=== PATIENT | female | born 1970 | race Hispanic/Latino ===

== ENCOUNTER 2024-08-31 03:52 | Emergency (ER) | payer BC, MEDICAID ==
[~2024-08-31] VITALS: Ht 157.5 cm; Wt 78.9 kg
[2024-08-31 04:30] LABS: HEMATOCRIT 39.9 % (36-48); MEAN CORPUSCULAR HEMOGLOBIN 30.2 pg (27.0-33.0); MEAN CORPUSCULAR HGB CONC 32.8 g/dL (32.0-36.0); MEAN CORPUSCULAR VOLUME 91.9 fL (79-99); RED BLOOD CELL COUNT(AUTO) 4.34 MIL/uL (4.00-5.50); RED CELL DISTRIBUTION WIDTH 12.6 % (11.0-15.5); WHITE BLOOD COUNT (AUTO) 4.5 K/uL (4.8-10.8)
[2024-08-31 04:36] LABS: APPEARANCE,URINE CLOUDY (CLEAR); BILIRUBIN,URINE NEGATIVE (NEGATIVE); COLOR,URINE COLORLESS (YELLOW); GLUCOSE, URINE (UA) 300 mg/dL (NEGATIVE); KETONES,URINE NEGATIVE (NEGATIVE); LEUKOCYTE ESTERASE ,URINE 500 Leu/uL (NEGATIVE); NITRATE,URINE NEGATIVE (NEGATIVE); OCCULT BLOOD,URINE NEGATIVE (NEGATIVE); PH,URINE 5.5 (5.0-8.0); PROTEIN,URINE NEGATIVE (NEGATIVE); UROBILINOGEN,URINE 0.2 mg/dL (0.2-1.0)
[2024-08-31 04:41] LABS: ADD UA MICROSCOPIC YES
[2024-08-31] MEDS: ketOROlac 15MG/ML VIAL (15MG/ML) IV ONE (04:41)
[2024-08-31] MEDS: DiphenhydrAMINE HCL 50 MG/ML VIAL IV ONE (04:41)
[2024-08-31] MEDS: PROCHLORPERAZINE 10MG/2ML INJ IV ONE (04:42)
[2024-08-31] MEDS: GABAPENTIN 300 MG CAPSULE PO SCH (04:42)
[2024-08-31 04:45] LABS: CREATININE 0.7 mg/dL (0.5-1.0); POTASSIUM 3.5 mmol/L (3.5-5.1)
[2024-08-31 04:55] LABS: BACTERIA,URINE RARE /HPF (None Seen); MUCUS,URINE RARE LPF (None Seen); SQUAMOUS EPITHELIAL CELL,UR RARE /HPF (0-2); WBC CLUMP MOD /HPF (0-1); WBC,URINE 26-50 /HPF (0-1); YEAST,URINE BUDDING MOD /HPF (None Seen)
--- NOTE | 2024-08-31 05:39 | ERN ---
General Chief Complaint: Headache Stated Complaint: HEADACHE Time Seen by MD: 04:04 History of Present Illness Initial Comments Mrs Blakely is a 54-year-old female with a history of uncontrolled diabetes who presents today with a chief complaint of a sharp pain in her right superior aspect of her scalp. Patient reports that she has had this pain before and yesterday she was given Toradol. Patient was on uncontrolled diabetes hemoglobin A1c is 11. Patient also has other sensation is changes in her upper extremities Allergies: Coded Allergies: No Known Drug Allergies (Unverified Allergy, Unknown, 08/31/24) Past Medical History Past Medical History: Diabetes-Type II Past Surgical History: None Female( History) LMP: Jul 23, 2016 ROS Dictation Constitutional: Negative for fever,chills, and weight loss Eyes: Negative for injury, pain,redness, and discharge ENT: Negative for injury,pain or swelling Cardiovascular: Negative for chest pain, palpitations, and edema Respiratory: Negative for shortness of breath, cough, and wheezing, Abdomen/GI: Negative for abdominal pain, nausea, vomiting, diarrhea, and constipation Back: Negative for injury and pain : Negative for injury, bleeding and discharge MS/Extremity: Negative for injury and deformity Skin: Scalp pain Neuro: Negative for headache, weakness, numbness, tingling, and seizure Psych: Negative for suicide ideation, homicidal ideation, and hallucinations Physical Exam Physical Exam Dictation General: awake, alert, NAD Head/Face: Normocephalic, atraumatic, pain with palpation over the the right superior aspect of the scalp Eyes: PERRL, EOMI, vision at baseline ENT: oral cavity clear, Neck: Trachea midline, supple, no nuchal rigidity Cardiovascular: RRR, normal S1/S2, No MRGs, no JVD Respiratory: CTAB, no respiratory distress, No rales or wheezes Abdomen: Soft, non-tender, non-distended, normal bowel sounds, no guarding or rebound. MS/Extremity: Pulses equa Neuro: COAx4, GCS 15, Psych: Normal behavior, mood, and affect normal Results Laboratory and Microbiology Lab and Micro Result Laboratory Tests Test 08/31/24 04:09 08/31/24 04:21 Urine Color COLORLESS (YELLOW) Urine Appearance CLOUDY (CLEAR) H Urine pH 5.5 (5.0-8.0) Urine Specific [place] 1.004 (1.001-1.031) Urine Protein NEGATIVE mg/dL (NEGATIVE) Urine Glucose (UA) 300 mg/dL (NEGATIVE) H Urine Ketones NEGATIVE mg/dL (NEGATIVE) Urine Occult Blood NEGATIVE (NEGATIVE) Urine Nitrate NEGATIVE (NEGATIVE) Urine Bilirubin NEGATIVE mg/dL (NEGATIVE) Urine Urobilinogen 0.2 mg/dL (0.2-1.0) Urine Leukocyte Esterase 500 Satnam/uL (NEGATIVE) H Urine RBC 2-5 /HPF (0-1) H Urine WBC 26-50 /HPF (0-1) H Urine WBC Clumps (Auto) MOD /HPF (0-1) Urine Squamous Epithelial Cells RARE /HPF (0-2) Urine Bacteria RARE /HPF (None Seen) Urine Yeast MOD /HPF (None Seen) White Blood Count 4.5 K/uL (4.8-10.8) L Red Blood Count 4.34 MIL/uL (4.00-5.50) Hemoglobin 13.1 g/dL (12.0-16.0) Hematocrit 39.9 % (36-48) Mean Corpuscular Volume 91.9 fL (79-99) Mean Corpuscular Hemoglobin 30.2 pg (27.0-33.0) Mean Corpuscular Hemoglobin Concent 32.8 g/dL (32.0-36.0) Red Cell Distribution Width 12.6 % (11.0-15.5) Platelet Count 221 K/uL (130-400) Mean Platelet Volume 11.2 fL (7.5-10.5) H Nucleated Red Blood Cells 0.0 % (0.0-0.19) Sodium Level 141 mmol/L (136-145) Potassium Level 3.5 mmol/L (3.5-5.1) Chloride Level 105 mmol/L (101-111) Carbon Dioxide Level 29 mmol/L (21-32) Blood Urea Nitrogen 14 mg/dL (7-18) Creatinine 0.7 mg/dL (0.5-1.0) Glomerular Filtration Rate Calc 104 mL/min (>90) Random Glucose 213 mg/dL (70-105) H Total Calcium 9.1 mg/dL (8.5-10.1) MDM Patient was had improvement with the gabapentin. Pain is longer present. Patient will be discharged with some gabapentin MDM: Differential diagnosis: Neuropathic pain Rationale: Tests considered and ordered secondary to shared decision making include: Previous outside records reviewed: Old ER visits. Risk of complication and/or morbidity or mortality of patient management: None Medications-Per medication reconciliation Need for hospitalization: Patient does not meet criteria for hospitalization. Need for emergency major/minor surgery: No There are no social concerns with this patient. Prescription drug management Prescriptions will include symptomatic care Patient's prior external medical records from other ER visits were reviewed by me as indicated. Prior testing and results from previous visits were reviewed. Prior tests were taken into account with medical decision making and resource utilization, independent historian/historians were used to obtain complete medical history. I independently interpreted the test that were performed, results were reviewed by me and considered findings on radiology if ordered. Medical management and examination interpretation discussions were had by me with other qualified healthcare professionals as indicated for the patient's care. ED Course Orders Procedure Category Date Status Time Cbc Without LAB 08/31/24 Complete Differential 04:23 Basic Metabolic Panel LAB 08/31/24 Complete 04:23 Urinalysis Profile LAB 08/31/24 Complete 04:23 Gabapentin 300 Mg Cap PHA 08/31/24 In Process (Neurontin 300 Mg 05:00 Prochlorperazine PHA 08/31/24 Complete 10mg/2ml Inj 05:00 Ketorolac PHA 08/31/24 Complete Tromethamine 15mg/Ml 05:00 Diphenhydramine Hcl PHA 08/31/24 Complete (Benadryl Inj) 05:00 Culture Urine FABIANO 08/31/24 In Process 04:41 0.9%Nacl 1000ml (Ns PHA 08/31/24 In Process 1000ml) 06:00 Current Medications Medications (Trade) Dose Ordered Sig/Heri Route PRN Reason Start Time Stop Time Status Last Admin Dose Admin Diphenhydramine HCl (BENAdryl INJ) 25 mg ONCE ONCE IV 08/31/24 05:00 08/31/24 05:01 DC 08/31/24 04:41 Gabapentin (NEURontin 300 MG CAP) 300 mg ONCE PO 08/31/24 05:00 09/30/24 04:59 08/31/24 04:42 Ketorolac Tromethamine (toRADol) 15 mg ONCE ONCE IV 08/31/24 05:00 08/31/24 05:01 DC 08/31/24 04:41 Prochlorperazine Edisylate (Compazine 10mg/ 2ml Inj) 10 mg ONCE ONCE IV 08/31/24 05:00 08/31/24 05:01 DC 08/31/24 04:42 Sodium Chloride 501 ml @ 167 mls/hr ONCE ONCE IV 08/31/24 06:00 08/31/24 08:59 08/31/24 05:51 Vital Signs Date Time Temp Pulse Resp B/P (MAP) Pulse Ox O2 Delivery O2 Flow Rate FiO2 08/31/24 04:26 98.2 86 18 111/69 99 Room Air* 0 21 08/31/24 03:53 97.5 85 18 145/78 99 0 DX & DISP Disposition: Discharge Departure Impression: Primary Impression: Neuropathic pain Condition: Stable Scripts Gabapentin (Gabapentin) 100 Mg Capsule 100 MG PO TID for 10 Days, #30 CAP Prov: ERNESTO GALLEGO MD 08/31/24 Additional Instructions: Please follow up with your primary care physician in the next 1-7 days for continuance of care. Please take the gabapentin for your neuropathic pain. Please start controlling your diabetes to help improve your neuropathic pain Referrals: SELF,REFERRAL (PCP) ERNESTO GALLEGO MD Aug 31, 2024 05:39
[2024-08-31] MEDS: 0.9%NACL 1000ML 501 ML IV ONE (05:51)
[2024-08-31] MEDS ORDERED: GABA-529 PO (06:58)
[2024-08-31 07:05] VITALS: BP 139/74; PULSE 89; RESP 18; TEMP 98.2; O2SAT 100
== END 2024-08-31 07:11 | disposition home or self-care (01) ==
LOC: EDH 03:52
DX: M79.2 Neuralgia and neuritis, unspecified (principal); E11.9 Type 2 diabetes mellitus without complications
CPT/HCPCS: 99284; 96374; 96375; 80048; 85027; 87086; 81001; 36415; J1200; J0780; J1885

== ENCOUNTER 2024-09-16 19:36 | Emergency (ER) | payer BC ==
[~2024-09-16] VITALS: Ht 157.5 cm; Wt 74.4 kg
[~2024-09-16 19:36] MED LIST: GABA-529 PO
[2024-09-16] MEDS: acetaMINOPHEN 500 MG TABLET PO ONE (20:15)
[2024-09-16 20:55] VITALS: BP 145/80; PULSE 80; RESP 18; TEMP 98.6; O2SAT 98
[2024-09-16] MEDS: ketOROlac 60 MG VIAL (30MG/ML) IM ONE (21:45)
--- NOTE | 2024-09-16 21:52 | ERN ---
ED Note History of Present Illness Stated Complaint: PAIN ON RT SIDE OF FACE, RASH Chief Complaint: Headache Time Seen by MD: 20:51 Time Seen by Midlevel: 20:51 Dictation: The patient is a 54-year-old female with a history of diabetes, hyperlipidemia w ho presents to the emergency department with complaints of burning sensation to right side of face. Patient reports she was diagnosed with a shingles two weeks ago. Completed her dose of anti viral medication and was giving pain medication but she ran out. Patient unsure of what medication they gave her. Denies any visual disturbances, reports that her eye was evaluated and did not have any wounds. Allergies: Coded Allergies: No Known Drug Allergies (Unverified Allergy, Unknown, 08/31/24) Home Meds Active Scripts Gabapentin (Gabapentin) 100 Mg Capsule, 100 MG PO TID for 10 Days, #30 CAP Prov:ERNESTO GALLEGO MD 08/31/24 Past Medical History Past Medical History: Diabetes-Type II, High Cholesterol Surgical History: None RN Note Reviewed/Agreed w/PFSH: Yes Review of System Dictation Constitutional: Negative for fever,chills, and weight loss Eyes: Negative for injury, pain,redness, and discharge ENT: Negative for injury,pain or swelling Cardiovascular: Negative for chest pain, palpitations, and edema Respiratory: Negative for shortness of breath, cough, and wheezing, Abdomen/GI: Negative for abdominal pain, nausea, vomiting, diarrhea, and constipation Back: Negative for injury and pain : Negative for injury, bleeding and discharge MS/Extremity: Negative for injury and deformity Skin: Negative for rash, and discoloration positive for painful rash on face. Neuro: Negative for headache, weakness, numbness, tingling, and seizure Psych: Negative for suicide ideation, homicidal ideation, and hallucinations Initial Vital Sign VS Vital Signs Date Time Temp Pulse Resp B/P (MAP) Pulse Ox O2 Delivery O2 Flow Rate FiO2 09/16/24 20:05 98.6 81 18 148/83 99 Room Air 0 09/16/24 20:55 21 Physical Exam Dictation Vital Signs reviewed General Appearance: Alert, oriented x 3, no acute distress, well developed, nourished. Head and Face: non-traumatic. Eyes: PERRL, pink conjunctivas, eyelid no trauma, anterior chamber with arcus senilis. Ears: Pinnas intact and no signs of trauma or erythema ear canals clear and no discharge TM no erythema Nose: No discharge, no bleeding. Oropharynx: Mouth normal, tongue pink. pharynx clear,no erythema, tonsils no exudates, no abscesses noted, mucous membrane moist Neck: Supple, non-tender, no thyromegaly, no masses, no JVD, no bruits Breast:Deferred Chest:No tenderness, no crepitus, no paradoxical movement, no retractions Lungs:Clear, well-ventilated, symmetric, no rales, no wheezing, no rhonchi, no stridor, good breath sounds bilaterally Heart: Regular rate, regular rhythm, no murmur, no gallops Vascular: no peripheral edema, Abdomen: Soft, positive bowel sounds, nondistended, no guarding, nontender, no rebound, no masses no hepatomegaly, no splenomegaly, no Contreras's sign, no hernias. Rectal: Deferred Genital: Deferred Neurological: Normal speech, motor function intact, sensory function intact Musculoskeletal: Neck nontender, full range of motion, back nontender, full range of motion, Extremities: nontender, full range of motion Skin: Color pink, dry, no turgor, , no lacerations, no abrasions, no contusions. Dry scabbed wounds noted to right forehead, no drainage. Lymphatic: Deferred Results (Laboratory/Radiology) Labs Reviewed?: Yes ED Course ED Course Orders Procedure Category Date Status Time Acetaminophen 500mg PHA 09/16/24 Complete Tab (Tylenol 500mg T 20:30 Ketorolac 60mg/2ml PHA 09/16/24 Complete (Toradol 60mg/2ml) 21:30 Current Medications Medications (Trade) Dose Ordered Sig/Heri Route PRN Reason Start Time Stop Time Status Last Admin Dose Admin Acetaminophen (TYLenol 500MG TAB) 1,000 mg ONCE ONCE PO 09/16/24 20:30 09/16/24 20:31 DC 09/16/24 20:15 Ketorolac Tromethamine (toRADol 60MG/ 2ML) 60 mg ONCE ONCE IM 09/16/24 21:30 09/16/24 21:31 DC 09/16/24 21:45 Vital Signs Date Time Temp Pulse Resp B/P (MAP) Pulse Ox O2 Delivery O2 Flow Rate FiO2 09/16/24 20:55 98.6 80 18 145/80 98 Room Air* 0 21 12/26/24 20:05 98.6 81 18 148/83 99 Room Air 0 Medical Decision Making MDM The patient is a 54-year-old female with a history of diabetes, hyperlipidemia who presents to the emergency department with complaints of burning sensation to right side of face. Patient reports she was diagnosed with a shingles two weeks ago. Completed her dose of anti viral medication and was giving pain medication but she ran out. Patient unsure of what medication they gave her. Denies any visual disturbances, reports that her eye was evaluated and did not have any wounds. Patient already treated for shingles. Wounds are scabbed. Patient will be t reated pain and instructed to follow up with PCP. Differential diagnosis: Shingles, cellulitis, abscess Need for hospitalization: Patient does not meet criteria for hospitalization. There are no social concerns with this patient. DX & DISP Disposition: Discharge Departure Impression: Primary Impression: Neuropathic pain Additional Impression: History of shingles Condition: Stable Scripts Gabapentin (Gabapentin) 100 Mg Capsule 1 CAP PO TID for 30 Days, #30 CAP 0 Refills Prov: FRANSICO AHUJA 09/16/24 Additional Instructions: FOLLOW-UP WITH PRIMARY CARE PROVIDER IN 1 TO 2 DAYS. TAKE MEDICATIONS DIRECTED HERE IN THE EMERGENCY ROOM. OKAY TO CONTINUE HOME MEDICATIONS UNLESS OTHERWISE DISCUSSED DURING YOUR VISIT IN THE EMERGENCY ROOM TODAY. RETURN TO YOUR NEAREST EMERGENCY ROOM IF SYMPTOMS WORSEN OR IF THERE IS NO IMPROVEMENT. CALL 911 IF YOU NEED IMMEDIATE ASSISTANCE. TAKE TYLENOL OR MOTRIN [id number] NEEDED AND IF NO CONTRAINDICATIONS ARE PRESENT. INCREASE ORAL HYDRATION. A WOUND CULTURE OR URINE CULTURE WAS ORDERED HERE IN THE EMERGENCY ROOM DEPARTMENT PLEASE FOLLOW-UP WITH PRIMARY CARE PROVIDER AND ADVISE THEM TO GET REPEAT PORTS FROM OUR FACILITY. IF YOU HAD ANY ADOLFO WRAP/SPLINTS T HAT WERE APPLIED HERE, PLEASE DO NOT REMOVE THEM UNTIL YOU SEE YOUR PRIMARY CARE OR SPECIALTY. Referrals: SELF,REFERRAL (PCP) Time of Disposition: 21:51 I have reviewed the case, and I agree with, Diagnosis and Plan FRANSICO AHUJA Sep 16, 2024 21:52
[2024-09-16] MEDS ORDERED: GABA-529 PO (21:58)
== END 2024-09-16 22:03 | disposition home or self-care (01) ==
LOC: EDH 19:36
DX: M79.2 Neuralgia and neuritis, unspecified (principal); E11.9 Type 2 diabetes mellitus without complications; E78.00 Pure hypercholesterolemia, unspecified; Z79.899 Other long term (current) drug therapy
CPT/HCPCS: 99284; 96372; J1885